=== PATIENT | male | born 1960 ===

== ENCOUNTER 2024-02-16 11:43 | Emergency (ER) | payer MEDICAID ==
[2024-02-16] MEDS ORDERED: Nitroglycerin 0.4 MG TAB 1 EACH ONE (12:33)
[2024-02-16] MEDS ORDERED: Ketorolac Tromethamine 30 MG (1 mL) VIAL ONE (12:53)
[2024-02-16 13:32] LABS: #Basophils 0.05 10x3/uL (0.0-0.2); #Eosinphils 0.05 10x3/uL (0.0-0.5); #Monocytes 0.69 10x3/uL (0.0-1.1); #Neutrophils 9.52 10x3/uL (1.5-8.4); %Basophils 0.4 % (0.0-2.0); %Eosinophils 0.4 % (0.0-6.0); %Lymphocytes 16.3 % (18.0-47.0); %Monocytes 5.6 % (0.0-10.0); %Neutrophils 76.7 % (40.0-75.0); Hematocrit 43.7 % (38.8-50.0); Hemoglobin 15.4 g/dL (13.5-17.5); Mean Corpuscular HGB CONC 35.2 g/dL (32.0-36.0); Mean Corpuscular Hemoglobin 29.2 pg (27.0-33.0); Mean Corpuscular Volume 82.8 fL (81.2-95.1); Mean Platelet Volume 8.9 fL (7.4-10.4); Platelet Count 337 10x3/uL (150-450); RBC Distribution Width 12.7 % (11.5-14.5); Red Blood Cell (RBC) Count 5.28 10x6/uL (4.32-5.72); White Blood Cell (WBC) Count 12.4 10x3/uL (3.5-10.5)
[2024-02-16 13:42] LABS: ALT (SGPT) 30 U/L (8-55); AST (SGOT) 21 U/L (5-34); Albumin 4.3 g/dL (3.4-4.8); Alkaline Phosphatase 70 U/L (40-110); Anion Gap 17 mmol/L (10-20); BUN (Urea Nitrogen) 23 mg/dL (8.4-25.7); Bilirubin, Total 0.4 mg/dL (0.2-1.2); Calc. Creatinine Clearance 0 mL/min (70-130); Calcium 9.9 mg/dL (7.8-10.44); Carbon Dioxide 18 mmol/L (23-31); Chloride 106 mmol/L (98-107); Estimated GFR 76; Globulin 2.9 g/dL (2.4-3.5); Glucose 150 mg/dL (80-115); Potassium 4.8 mmol/L (3.5-5.1); Protein, Total 7.2 g/dL (5.8-8.1); Sodium 136 mmol/L (136-145)
[2024-02-16 13:47] LABS: Troponin I Less than 0.010 ng/mL (< 0.028)
[2024-02-16 15:53] LABS: Troponin I Less than 0.010 ng/mL (< 0.028)
== END 2024-02-16 16:22 | disposition home or self-care (01) ==
LOC: EDBD 11:43 → CSHERS 11:43
DX: R07.89 Other chest pain (principal); F17.290 Nicotine dependence, other tobacco product, uncomplicated; E11.9 Type 2 diabetes mellitus without complications
CPT/HCPCS: 36415; 71045; 80053; 83690; 84484; 85025; 93005; 96374; J1885